=== PATIENT | female | born 1955 | race Caucasian/White ===

== ENCOUNTER 2017-10-25 09:30 | Emergency (ER) | payer BC ==
[2017-10-25] MEDS ORDERED: IPRATROPIUM/ALBUTEROL SULFATE 3 ML SOLUTION IH ONE (10:06)
[2017-10-25] MEDS ORDERED: KETOROLAC TROMETHAMINE 30MG/ML ONE (10:28)
== END 2017-10-25 11:07 | disposition home or self-care (01) ==
LOC: EDH 09:30
DX: J06.9 Acute upper respiratory infection, unspecified (principal); I10 Essential (primary) hypertension; E78.5 Hyperlipidemia, unspecified; Z79.899 Other long term (current) drug therapy
CPT/HCPCS: 71046; 87804 ×2; 94640; 96372; 99285; J1885